=== PATIENT | female | born 2000 | race Caucasian/White ===

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

== ENCOUNTER → 2021-09-30 19:51 | Observation (INO) | END | disposition home or self-care (01) | LOC: 1NENULAB | PROVIDERS: ADMIT Registered Nurse; ATTEND Registered Nurse ==

== ENCOUNTER → 2021-11-23 21:30 | Observation (INO) ==
[2021-11-23 21:12] LABS: Bacteria,Urine Few per hpf (None-Few); Bilirubin,Urine Negative (Negative); Blood,Urine Negative (Negative); Clarity,Urine Turbid (Clear); Color,Urine Light-Yellow (Yellow); Glucose,Urine (UA) Normal (Normal); Ketones,Urine Negative (Negative); Leukocyte Esterase,Urine Large (Negative); Mucus,Urine Few per lpf (None-Few); Nitrite,Urine Negative (Negative); Protein,Urine Trace mg/dL (Neg-Trace); RBC,Urine 0-3 per hpf (0-3); Specific Gravity,Urine 1.018 (1.010-1.025); Squamous Epithelial Cell,Urine Moderate per hpf (None-Few); Urobilinogen,Urine Normal (Normal); WBC,Urine 15-30 per hpf (0-3)
[~2021-11-23 21:30] MED LIST changes: -*HR* Nalbuphine 10 MG/ML AMPUL IVP PRN; -Famotidine 20 MG/2 ML VIAL IVP PRN; -Metoclopramide 10 MG/2 ML VIAL IVP PRN; -Naloxone 0.4 MG/ML INJ IVP PRN; -Ondansetron 4 MG/2 ML VIAL IVP PRN; +Terconazole Vag CRM 20 GM TUBE VG SCH
== END | disposition home or self-care (01) ==
LOC: 1NENULAB
PROVIDERS: ADMIT Registered Nurse; ATTEND Registered Nurse

== ENCOUNTER → 2021-12-29 13:05 | Observation (INO) ==
[2021-12-29 11:52] LABS: Bacteria,Urine Few per hpf (None-Few); Bilirubin,Urine Negative (Negative); Blood,Urine Negative (Negative); Clarity,Urine Turbid (Clear); Color,Urine Yellow (Yellow); Glucose,Urine (UA) Normal (Normal); Ketones,Urine Negative (Negative); Leukocyte Esterase,Urine Large (Negative); Mucus,Urine Many per lpf (None-Few); Nitrite,Urine Negative (Negative); PH,Urine 7.5 pH Units (5.0-8.0); Protein,Urine 70 mg/dL (Neg-Trace); RBC,Urine 0-3 per hpf (0-3); Specific Gravity,Urine > 1.030 (1.010-1.025); Squamous Epithelial Cell,Urine Moderate per hpf (None-Few); WBC,Urine 50-100 per hpf (0-3)
[2021-12-29 14:38] LABS: Candida DNA DETECTED (Not Detect); Gardnerella DNA DETECTED (Not Detect); Trichomonas DNA Not Detected (Not Detect)
== END | disposition home or self-care (01) ==
LOC: 1NENULAB
PROVIDERS: ADMIT Registered Nurse; ATTEND Registered Nurse

== ENCOUNTER → 2022-01-02 23:09 | Observation (INO) ==
[2022-01-02 22:19] LABS: Adenovirus Not Detected (Not Detect); Bordetella Pertussis Not Detected (Not Detect); Chlamydophila pneumoniae Not Detected (Not Detect); Coronavirus 229E Not Detected (Not Detect); Coronavirus HKU1 Not Detected (Not Detect); Coronavirus NL63 Not Detected (Not Detect); Coronavirus OC43 Not Detected (Not Detect); Human Metapneumovirus Not Detected (Not Detect); Human Rhinovirus/Enterovirus Not Detected (Not Detect); Influenza A Subtype 2009 H1 Not Detected (Not Detect); Influenza B Not Detected (Not Detect); Mycoplasma pneumoniae Not Detected (Not Detect); Parainfluenza Virus 1 Not Detected (Not Detect); Parainfluenza Virus 2 Not Detected (Not Detect); Parainfluenza Virus 3 Not Detected (Not Detect); Parainfluenza Virus 4 Not Detected (Not Detect); Respiratory Syncytial Virus Not Detected (Not Detect); SARS-CoV-2 Not Detected (Not Detect)
[2022-01-03 01:07] LABS: Bacteria,Urine Few per hpf (None-Few); Bilirubin,Urine Negative (Negative); Blood,Urine Negative (Negative); Clarity,Urine Clear (Clear); Color,Urine Light-Yellow (Yellow); Glucose,Urine (UA) Normal (Normal); Ketones,Urine Negative (Negative); Leukocyte Esterase,Urine Small (Negative); Mucus,Urine Few per lpf (None-Few); Nitrite,Urine Negative (Negative); Protein,Urine Trace mg/dL (Neg-Trace); RBC,Urine 0-3 per hpf (0-3); Specific Gravity,Urine 1.015 (1.010-1.025); Squamous Epithelial Cell,Urine Few per hpf (None-Few); Urobilinogen,Urine Normal (Normal); WBC,Urine 0-3 per hpf (0-3)
== END | disposition home or self-care (01) ==
LOC: 1NENULAB
PROVIDERS: ADMIT Obstetrics & Gynecology; ATTEND Obstetrics & Gynecology

== ENCOUNTER → 2022-01-08 10:05 | Observation (INO) ==
[2022-01-08 09:33] LABS: Bacteria,Urine Few per hpf (None-Few); Bilirubin,Urine Negative (Negative); Blood,Urine Negative (Negative); Clarity,Urine Turbid (Clear); Color,Urine Yellow (Yellow); Glucose,Urine (UA) Normal (Normal); Ketones,Urine Negative (Negative); Leukocyte Esterase,Urine Large (Negative); Mucus,Urine Few per lpf (None-Few); Nitrite,Urine Negative (Negative); PH,Urine 7.5 pH Units (5.0-8.0); Protein,Urine 30 mg/dL (Neg-Trace); RBC,Urine 0-3 per hpf (0-3); Specific Gravity,Urine 1.022 (1.010-1.025); Squamous Epithelial Cell,Urine Many per hpf (None-Few); Urobilinogen,Urine Normal (Normal); WBC,Urine 15-30 per hpf (0-3)
[2022-01-08 10:06] LABS: Candida DNA DETECTED (Not Detect); Gardnerella DNA DETECTED (Not Detect); Trichomonas DNA Not Detected (Not Detect)
== END | disposition home or self-care (01) ==
LOC: 1NENULAB
PROVIDERS: ADMIT Advanced Practice Midwife; ATTEND Advanced Practice Midwife

== ENCOUNTER → 2022-01-29 11:00 | Observation (INO) ==
[~2022-01-29 11:00] MED LIST changes: +Ringers Solution, Lactated 1,000 ML ONE; -Terconazole Vag CRM 20 GM TUBE VG SCH
== END | disposition home or self-care (01) ==
LOC: 1NENULAB
PROVIDERS: ADMIT Advanced Practice Midwife; ATTEND Advanced Practice Midwife

== ENCOUNTER 2022-02-01 01:22 | Inpatient (IN) ==
[2022-02-01] MEDS ORDERED: Ringers Solution, Lactated 1,000 ML ONE (02:04)
[2022-02-01] MEDS ORDERED: Oxytocin 30 UNIT/503 ML BAG IVC ONE (02:05)
[2022-02-01] MEDS ORDERED: Epidural Premix (fent/bupiv) 110 ML EP ONE (02:17)
[2022-02-01] MEDS ORDERED: Bupivacaine-MPF 0.25% 10 ML VIAL ONE (02:23)
[2022-02-01] MEDS ORDERED: *HR* FentaNYL (PF) 100 MCG/2 ML VIAL ONE (02:23)
[2022-02-01] MEDS ORDERED: Famotidine 20 MG/2 ML VIAL IVP PRN (02:34)
[2022-02-01] MEDS ORDERED: Ondansetron 4 MG/2 ML VIAL IVP PRN (02:34)
[2022-02-01] MEDS ORDERED: Metoclopramide 10 MG/2 ML VIAL IVP PRN (02:34)
[2022-02-01] MEDS ORDERED: Naloxone 0.4 MG/ML INJ IVP PRN (02:34)
[2022-02-01] MEDS ORDERED: Ringers Solution, Lactated 1,000 ML IVC SCH (02:45)
[2022-02-01] MEDS ORDERED: EPHEDrine 50 MG/ML VIAL IVP PRN (02:47)
[2022-02-01] MEDS ORDERED: Epidural Premix (fent/bupiv) 110 ML EP SCH (03:00)
[2022-02-01 03:26] LABS: Basophils % 0.1 %; Eosinophils # 0.1 K/mcL (0.0-0.6); Eosinophils % 0.7 %; Hematocrit 36.1 % (35.3-44.9); Hemoglobin 11.9 g/dL (11.5-15.4); Immature Granulocytes % 0.7 % (0-4); Lymphocytes % 24.3 %; Mean Corpuscular Hemoglobin 30.9 pg (28.0-33.3); Mean Corpuscular Volume 93.8 fL (83.0-100.0); Mean Platelet Volume 11.9 fL (9.4-12.4); Monocytes # 0.5 K/mcL (0.0-1.3); Monocytes % 6.5 %; Neutrophils # 5.6 K/mcL (1.6-8.9); Platelet Count 235 K/mcL (140-400); Red Blood Count 3.85 M/mcL (3.82-4.97); Red Cell Distribution Width 14.1 % (11.5-14.5); Segmented Neutrophils % 67.7 %; White Blood Count 8.3 K/mcL (4.3-11.1)
[2022-02-01 03:55] LABS: Alanine Aminotransferase 14 Units/L (7-52); Aspartate Amino Transferase 16 Units/L (13-39); BUN/Creatinine Ratio 18 (6-26); Blood Urea Nitrogen 12 mg/dL (6-20); Lactate Dehydrogenase 174 Units/L (140-271)
[2022-02-01 04:21] LABS: Protein/Creatinine Ratio,Urine 0.23 mg/mg (0.00-0.20)
[2022-02-01] MEDS ORDERED: Oxytocin 30 UNIT/503 ML BAG IVC SCH (05:45)
[2022-02-01] MEDS ORDERED: Benzocaine/Menthol 56 GM AEROSOL SPRAY TP PRN (05:45)
[2022-02-01] MEDS ORDERED: Lanolin 7 G OINT...G. TP PRN (05:45)
[2022-02-01] MEDS ORDERED: Ondansetron ODT 4 MG TAB.RAPDIS SL PRN (06:00)
[2022-02-01] MEDS: Ibuprofen 600 MG TABLET PO SCH ×3 (06:15→20:00)
[2022-02-01] MEDS: Acetaminophen 325 MG TABLET PO SCH ×3 (07:17→20:00)
[2022-02-01] MEDS: Prenatal Vit/FA 1 EACH TABLET PO SCH (09:43)
[2022-02-01 20:11] VITALS: O2SAT 98
[2022-02-02] MEDS: Ibuprofen 600 MG TABLET PO SCH ×2 (01:58→07:47)
[2022-02-02] MEDS: Acetaminophen 325 MG TABLET PO SCH ×2 (01:58→07:47)
[2022-02-02 07:42] VITALS: BP 126/87; PULSE 66; TEMP 97.6
[2022-02-02] MEDS: Prenatal Vit/FA 1 EACH TABLET PO SCH (07:47)
[2022-02-02 08:52] LABS: Influenza A PCR Negative (Negative); Influenza B PCR Negative (Negative); Resp. Syncytial Virus PCR Negative (Negative)
[2022-02-02 08:53] LABS: SARS-CoV-2 by PCR (In House) Negative (Negative)
== END 2022-02-02 10:24 | disposition home or self-care (01) | DRG 560 ==
LOC: 1NENULAB 01:22 → 1NENUOBS 05:44
PROVIDERS: ADMIT Advanced Practice Midwife; ATTEND Advanced Practice Midwife